=== PATIENT | female | born 1940 ===

== ENCOUNTER 2017-10-17 07:50 | Outpatient (CLI) | payer OTHER ==
[~2017-10-17] VITALS: Ht 152.4 cm; Wt 61.7 kg
== END 2017-10-17 08:15 | disposition home or self-care (01) ==
LOC: OFIC 805 07:50
DX: J31.2 Chronic pharyngitis (principal); H61.23 Impacted cerumen, bilateral; J31.0 Chronic rhinitis; K21.9 Gastro-esophageal reflux disease without esophagitis

== ENCOUNTER 2018-01-09 08:03 | Outpatient (CLI) | payer OTHER ==
[~2018-01-09] VITALS: Ht 152.4 cm; Wt 61.7 kg
== END 2018-01-09 08:15 | disposition home or self-care (01) ==
LOC: OFIC 805 08:03
DX: J31.2 Chronic pharyngitis (principal); J31.0 Chronic rhinitis; K21.9 Gastro-esophageal reflux disease without esophagitis

== ENCOUNTER 2018-07-22 08:04 | Outpatient (CLI) | payer OTHER ==
[~2018-07-22] VITALS: Ht 152.4 cm; Wt 63.0 kg
== END 2018-07-22 08:20 | disposition home or self-care (01) ==
LOC: OFIC 805 08:04
DX: S02.2XXA Fracture of nasal bones, initial encounter for closed fracture (principal); S09.93XA Unspecified injury of face, initial encounter; S01.21XA Laceration without foreign body of nose, initial encounter; J31.0 Chronic rhinitis

== ENCOUNTER 2018-07-29 07:50 | Outpatient (CLI) | payer OTHER ==
[~2018-07-29] VITALS: Ht 152.4 cm; Wt 63.0 kg
== END 2018-07-29 08:05 | disposition home or self-care (01) ==
LOC: OFIC 805 07:50
DX: S02.2XXA Fracture of nasal bones, initial encounter for closed fracture (principal); S09.93XA Unspecified injury of face, initial encounter; S01.21XA Laceration without foreign body of nose, initial encounter

== ENCOUNTER 2018-08-19 07:25 | Outpatient (CLI) | payer OTHER ==
[~2018-08-19] VITALS: Ht 152.4 cm; Wt 63.0 kg
== END 2018-08-19 07:40 | disposition home or self-care (01) ==
LOC: OFIC 805 07:25
DX: H91.13 Presbycusis, bilateral (principal); J31.0 Chronic rhinitis; S09.93XA Unspecified injury of face, initial encounter